=== PATIENT | male | born 1950 | race Caucasian/White ===

== ENCOUNTER 2016-09-18 21:06 | Emergency (ER) | payer SELFPAY ==
[~2016-09-18] VITALS: Ht 177.8 cm; Wt 97.0 kg
[~2016-09-18 21:06] MED LIST: DAYQUIL PO; NYQUIL PO
[2016-09-18 22:36] VITALS: BP 130/87
[2016-09-18] MEDS ORDERED: CEPHALEXIN MONOHYDRATE 500 MG CAPSULE PO ONE (23:00)
[2016-09-18] MEDS ORDERED: ACETAMINOPHEN/CODEINE 300-30 MG TABLET PO ONE (23:00)
== END 2016-09-18 23:24 | disposition home or self-care (01) ==
LOC: EMS 21:08
DX: T83.098A Other mechanical complication of other urinary catheter, initial encounter (principal); R33.9 Retention of urine, unspecified
CPT/HCPCS: 51702; 99284